=== PATIENT | female | born 1980 | race Caucasian/White ===

== ENCOUNTER 2016-06-18 09:11 | Day surgery (SDC) | payer BC ==
[2016-06-18] MEDS: Lactated Ringers 1,000 ML IV SCH ×2 (09:20→14:20)
[2016-06-18] MEDS ORDERED: Lidocaine 1%/Sod Bicarbonate in NS 8.4% 1 ML Syringe IV PRN (09:30)
[2016-06-18] MEDS ORDERED: Sodium Chloride 0.9% 10 ML Syringe FLUSH PRN (09:30)
--- NOTE | 2016-06-18 09:38 | PCM.PREANE ---
Preanesthetic Assessment - Physical Assessment NPO Status Date: 06/17/16 NPO Status Time: 21:30 O2 Sat by Pulse Oximetry: 100 Respiratory Rate: 16 Vital Signs: Last Vital Signs Temp 36.9 C 06/18/16 09:15 Pulse 82 06/18/16 09:15 Resp 16 06/18/16 09:15 BP 120/69 06/18/16 09:15 Pulse Ox 100 06/18/16 09:15 Height: 1.52 m Weight: 70.307 kg - Allergies Allergies/Adverse Reactions: Allergies Allergy/AdvReac Type Severity Reaction Status Date / Time hydrocodone Allergy Tachycardia Verified 06/18/16 09:31 latex Allergy Fever Verified 04/07/15 19:51 PreAnesthesia Questionnaire HEENT History: Reports: Impaired vision Cardiovascular History: Reports: Heart murmur Gastrointestinal History: Reports: GERD, Other (see below) Other Gastrointestinal History: Celiac Dz Genitourinary History: Reports: Other (see below) Other Genitourinary History: yeast infections, recurrent 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: Endometriosis, Endocrine/Metabolic History: Reports: Diabetes, type II - Past Surgical History HEENT Surgical History: Reports: Other (see below) Female Surgical History: Reports: D&C, Hysterectomy, Other (see below) - SUBSTANCE USE Smoking Status *Q: Never Smoker Second Hand Smoke Exposure: No Recreational Drug Use History: No - HOME MEDS Home Medications: Home Meds Fluconazole [Diflucan] 150 mg PO ACBRKBED #3 tablet 06/03/14 [Rx] Terconazole [Terazol 7] 1 applic VG DAILY #1 cream.appl 06/03/14 [Rx] Hydrochlorothiazide 12.5 mg PO DAILY 04/07/15 [History] Esomeprazole Magnesium [Nexium 24Hr] 20 mg PO DAILY #30 capsule. 04/08/15 [Rx] - CURRENT (IN HOUSE) MEDS Current Meds: Current Medications Lactated Ringer's (Ringers, Lactated) 1,000 mls @ 125 mls/hr IV ASDIRECTED LULA Lidocaine/Sodium Bicarbonate (Buffered Lidocaine 1% In Ns 8.4%) 0.25 ml IV ONETIME PRN PRN Reason: Prior to IV Start Scopolamine (Transderm-Scop) 1.5 mg TRDERM ONETIME ONE Stop: 06/18/16 09:31 Sodium Chloride (Saline Flush) 10 ml FLUSH ASDIRECTED PRN PRN Reason: Keep Vein Open Preanesthetic Assessment - ANESTHESIA/TRANSFUSION/FAMILY HX Anesthesia/Transfusion History: No Prior Transfusion(s), Prior Anesthesia Type of Anesthesia Reaction: Reports: Excessive Nausea/Vomiting Family History of Anesthesia Reaction: No Intubation History: Unknown - REVIEW OF SYSTEMS Constitutional: Reports: no symptoms QA INTERN: Reports: seizure (childhood seizures noted up until age 6, and patient states she out grew them.), weakness (noted currently due to pelvic pain.) Respiratory: Reports: no symptoms (History of asthma, with patient not currently needing to take albuterol inhaler.) Cardiovascular: Reports: no symptoms GI: Reports: no symptoms (GERD on occasion/with ingestion of spicey food.) Other: Reports: None (history of kidney stones.), Easy Bruising, Diabetes (pre- diabetic per patient.) - PHYSICAL ASSESSMENT HR: 82 O2 Sat by Pulse Oximetry: 100 RR: 16 BP: 120/69 Temp: 36.9 C Vital Signs: Last Vital Signs Temp 36.9 C 06/18/16 09:15 Pulse 82 06/18/16 09:15 Resp 16 06/18/16 09:15 BP 120/69 06/18/16 09:15 Pulse Ox 100 06/18/16 09:15 Height: 1.52 m Weight: 70.307 kg NPO Status Date: 06/17/16 NPO Status Time: 21:30 ASA Class: 2 Mental Status: Alert & Oriented x3 Airway Class: Mallampati = 2 Dentition: Reports: Normal Dentition, [place](s) (temporaty crown noted right upper/ and permanent lower retainer noted.), Caries Thyro-Mental Finger Breadths: 3 Mouth Opening Finger Breadths: 3 ROM/Head Extension: Full Respiratory Status: lungs clear to auscultation bilaterally Cardiovascular Status: regular rate & rhythm, normal S1, S2, no murmur, blood pressure WNL - LAB Values: Reviewed and noted. - ALLERGIES Allergies/Adverse Reactions: Allergies Allergy/AdvReac Type Severity Reaction Status Date / Time hydrocodone Allergy Tachycardia Verified 06/18/16 09:31 latex Allergy Fever Verified 04/07/15 19:51 - ANESTHESIA PLAN Preop Beta Amanda: No Anesthesia Type Planned: General Anesthesia - ACKNOWLEDGEMENTS Pt an Appropriate Candidate for the Planned Anesthesia: Yes Alternatives and Risks of Anesthesia Discussed w Pt/Guardian: Yes Pt/Guardian Understands and Agrees with Anesthesia Plan: Yes
[2016-06-18] MEDS ORDERED: Scopolamine 1.5 MG Transdermal Patch TRDERM ONE (09:45)
[2016-06-18] MEDS ORDERED: Bupivacaine 0.5% 30 ML SDV ONE (10:05)
[2016-06-18] MEDS ORDERED: Propofol 200 MG/20 ML SDV ONE ×3 (10:32→10:35)
[2016-06-18] MEDS ORDERED: Rocuronium 50 MG/5 ML Vial ONE (10:32)
[2016-06-18] MEDS ORDERED: Ondansetron 4 MG/2 ML SDV ONE (10:32)
[2016-06-18] MEDS ORDERED: Midazolam 1 MG/ML 2 ML SDV ONE (10:32)
[2016-06-18] MEDS ORDERED: fentaNYL 250 MCG/5 ML SDV ONE (10:33)
[2016-06-18] MEDS ORDERED: Dexamethasone 4 MG/ML 5 ML MDV ONE (10:34)
[2016-06-18] MEDS ORDERED: ceFAZolin 1 GM Vial ONE (11:36)
[2016-06-18] MEDS ORDERED: Phenylephrine/Normal Saline 100 MCG/ML 10 ML Syringe ONE (11:38)
[2016-06-18] MEDS ORDERED: HYDROmorphone 1 MG/ML Syringe ONE (11:43)
[2016-06-18] MEDS ORDERED: Lactated Ringers 1,000 ML ONE (11:53)
[2016-06-18] MEDS ORDERED: Albuterol 6.7 GM Inhaler INH PRN (11:56)
[2016-06-18] MEDS ORDERED: Neostigmine Methylsulfate 1 MG/ML 5 ML Syringe ONE (11:56)
--- NOTE | 2016-06-18 12:04 | PCM.OPNOTE ---
- General Post-Op/Procedure Note Date of Surgery/Procedure: 06/18/16 Operative Procedure(s): Laparoscopy, right salpingo-oophorectomy, lysis of pelvic adhesions Findings: The dense pelvic adhesions involving omentum and epiploica to the vaginal cuff. The bowel to the right ovary. Right ovary looked mildly enlarged with small cysts present. Left ovary looked normal. Left distal fallopian tube normal. Liver edge, gallbladder normal. Uterus and cervix surgically absent. Pre Op Diagnosis: 1. Pelvic pain. 2. Endometriosis Post-Op Diagnosis: Same with pelvic adhesions Anesthesia Technique: General ET tube Other Anesthesia Type: Marcaine 0.5% locally at the incision sites. Primary Surgeon: Bernard Camacho Secondary Surgeon: Sherita Lyman Anesthesia Provider: Ramez Mcmullen Pathology: Right tube and ovary Fluid Replacement, Intraop: 1,000 (Crystalloid) Output, Urine Amount: 50 EBL in mLs: 5 Drain/Tube Comments:: Bladder catheter during surgery only. Complications: None Condition: Good Free Text/Narrative:: Surgeon duration: 38 minutes Complications: None Specimens: Right tube and ovary. Procedure: The patient is taken to the operating room and placed in supine position on the operating table. She received 2 g of Ancef preoperatively for infection prophylaxis. She had sequential compression stockings in place for DVT prophylaxis. After adequate anesthesia patient was prepped and draped in the usual fashion. Sponge stick was placed in the vagina for manipulation and an indwelling bladder catheter was placed. The patient is placed in a near spine position with legs in the modified Ordoñez stirrups. Infraumbilical port site and suprapubic port site were then established with pneumoperitoneum placed with the Verres needle. The third port site right lateral abdomen was placed under direct visualization after infiltration with Marcaine 0.5% each site was infiltrated end total amount of Marcaine was approximately 7-10 cc. The findings were as described above. At this is made to take the right ovary and distal fallopian tube and lyse adhesions. The adhesions around the ovary was then lysed with the Ethicon Endoseal device. The infundibulopelvic ligament was then transected using the same device. The uterus and distal fallopian tube were placed in an Endo Catch bag and removed through the right lateral port site. Adhesions were lysed in the pelvis. This again using the Endo seal device. Hemostasis was confirmed at this time. A small peritoneal cyst was removed. The right lateral port site was then closed using a José Samano closure device and 2-0 PDS suture. The suprapubic port was removed and the pneumoperitoneum was then reversed. The intraumbilical port sleeve was also removed. All incisions were closed with interrupted subcuticular sutures of 3-0 Monocryl. Further approximated with Dermabond skin glue. The indwelling bladder catheter and sponge stick were removed at the end of the procedure. The patient was awakened from general endotracheal anesthesia. Sponge, instrument and needle counts are correct at the end of procedure. She tolerated the procedure well left the operating room in good condition.
[2016-06-18] MEDS ORDERED: traMADol 50 MG Tab PO PRN (12:05)
[2016-06-18] MEDS ORDERED: Ondansetron 4 MG/2 ML SDV IVPUSH PRN (12:10)
[2016-06-18] MEDS ORDERED: diphenhydrAMINE 50 MG/ML SDV IVPUSH PRN (12:10)
[2016-06-18] MEDS ORDERED: Meperidine PF 50 MG/ML Syringe IVPUSH PRN (12:10)
[2016-06-18] MEDS: fentaNYL 100 MCG/2 ML SDV IVPUSH PRN ×3 (12:12→12:35)
[2016-06-18] MEDS ORDERED: Ketorolac 30 MG/ML SDV ONE (12:17)
--- NOTE | 2016-06-18 12:18 | PCM.POSTAN ---
POST ANESTHESIA ASSESSMENT - MENTAL STATUS Mental Status: alert, oriented - VITAL SIGNS Pulse Rate: 88 SaO2: 96 Resp Rate: 14 Blood Pressure: 111/75 Temperature: 36.9 C - RESPIRATORY Respiratory Status: respiratory rate WNL, airway patent, O2 saturation stable, supplemental oxygen - CARDIOVASCULAR CV Status: pulse rate WNL, blood pressure stable - GASTROINTESTINAL GI Status: no symptoms - PAIN Pain Score: 7 (opioids given) - POST OP HYDRATION Hydration Status: adequate & stable
[2016-06-18] MEDS: HYDROmorphone 0.5 MG/0.5 ML Syringe IVPUSH PRN ×2 (12:22→12:46)
[2016-06-18] MEDS ORDERED: traMADol 50 MG Tab PO ONE (14:35)
[2016-06-18 15:37] VITALS: BP 109/64
== END 2016-06-18 15:50 | disposition home or self-care (01) ==
LOC: JD.SDS 09:11
PROVIDERS: ATTEND Obstetrics & Gynecology
PROC: 0UT04ZZ Resection of Right Ovary, Percutaneous Endoscopic Approach (ICD-10-PCS; principal; 2016-06-18)
PROC: 0UT54ZZ Resection of Right Fallopian Tube, Percutaneous Endoscopic Approach (ICD-10-PCS; 2016-06-18)
DX: N80.9 Endometriosis, unspecified (principal); N83.01 Follicular cyst of right ovary; N83.8 Other noninflammatory disorders of ovary, fallopian tube and broad ligament; N73.6 Female pelvic peritoneal adhesions (postinfective); Z88.6 Allergy status to analgesic agent; Z91.040 Latex allergy status; Z87.891 Personal history of nicotine dependence
CPT/HCPCS: 58661; 88305; A9270; J0690; J1100; J1170; J1885; J2250; J2405; J2710; J3010; J7120; 00840; J2704

== ENCOUNTER 2019-04-09 17:46 | Emergency (ER) | payer BC ==
[2019-04-09 18:30] VITALS: BP 111/79; PULSE 113
[2019-04-09] MEDS ORDERED: Sodium Chloride 0.9% 10 ML Syringe FLUSH PRN ×2 (18:40→18:50)
[2019-04-09] MEDS ORDERED: HYDROmorphone 0.5 MG/0.5 ML Syringe IVPUSH ONE ×2 (18:47→22:16)
[2019-04-09] MEDS ORDERED: Dexamethasone 10 MG/ML SDV IM ONE (18:47)
[2019-04-09] MEDS ORDERED: Iopamidol 612 MG/ML 100 ML Bottle IVPUSH ONE (18:50)
--- NOTE | 2019-04-09 19:07 | EDM.PDOC ---
ED HPI GENERAL MEDICAL PROBLEM - General Chief Complaint: ENT Problem Stated Complaint: STREP F NOT GETTING BETTER Time Seen by Provider: 04/09/19 18:37 Source of Information: Reports: Patient, RN Notes Reviewed History Limitations: Reports: No Limitations - History of Present Illness INITIAL COMMENTS - FREE TEXT/NARRATIVE: Patient is a 38-year-old female who presents to the ED for the evaluation of strep throat. Patient states that she was evaluated in the clinic about a week ago, for sore throat, she had a strep swab done, this was originally negative but the culture grew out Streptococcus f. The patient states she initially got a 1 g injection of Rocephin in the clinic however she states that she has not had much symptom improvement. She states that this has been worsening over the last few days. She is noting fevers of up to 102 F at home. She is having difficulty swallowing due to the throat pain, body aches, chills and nausea. Patient states she is not able to eat or drink much at all due to the pain. She does note that the pain was much worse this morning, this caused her to seek care for reevaluation. Patient states there is no chance of as she has had a hysterectomy. Generalized Pain Score (Numeric/FACES): 6 - Related Data Allergies Allergy/AdvReac Type Severity Reaction Status Date / Time hydrocodone AdvReac Tachycardia Verified 04/09/19 18:29 latex AdvReac Fever Verified 04/09/19 18:29 Home Meds: Home Meds Ondansetron [Zofran ODT] 4 mg PO Q8H PRN #12 tab.dis 04/09/19 [Rx] Penicillin V Potassium 500 mg PO BID #20 tab 04/09/19 [Rx] oxyCODONE HCl/Acetaminophen [Oxycodone-Acetaminophen 5-325] 1 each PO Q6H PRN # 12 tablet 04/09/19 [Rx] Past Medical History HEENT History: Reports: Impaired Vision Cardiovascular History: Reports: Heart Murmur Gastrointestinal History: Reports: GERD, Other (See Below) Other Gastrointestinal History: Celiac Dz Genitourinary History: Reports: Other (See Below) Other Genitourinary History: yeast infections, recurrent 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, Endocrine/Metabolic History: Reports: Diabetes, Type II - Past Surgical History Female Surgical History: Reports: D&C, Hysterectomy Social & Family History - Family History GI: Reports: Cholelithiasis Oncologic: Reports: Ovarian - Tobacco Use Smoking Status *Q: Never Smoker Second Hand Smoke Exposure: No - Caffeine Use Caffeine Use: Reports: None - Recreational Drug Use Recreational Drug Use: No - Living Situation & Occupation Living situation: Reports: , with Family ED ROS ENT - Review of Systems Review Of Systems: See Below Constitutional: Reports: Fever, Chills, Decreased Appetite (d/t throat pain). Denies: Weight Loss HEENT: Reports: Throat Pain, Throat Swelling (L sided) Respiratory: Denies: Shortness of Breath Cardiovascular: Denies: Chest Pain GI/Abdominal: Reports: Nausea. Denies: Abdominal Pain, Constipation, Diarrhea, Vomiting : Denies: Dysuria, Frequency, Urgency Neurological: Denies: Headache ED EXAM, ENT - Physical Exam Exam: See Below Exam Limited By: No Limitations General Appearance: Alert, WD/WN, No Apparent Distress Eye Exam: Bilateral Eye: EOMI, Normal Inspection, PERRL Ears: Normal External Exam, Normal Canal, Hearing Grossly Normal, Normal TMs Nose: Normal Inspection Mouth/Throat: Normal Inspection, Normal Gums, Normal Lips, Normal Teeth, Pharyngeal Erythema. No: Drooling, Trismus, Uvular Deviation, Uvular Edema Head: Atraumatic, Normocephalic Neck: Normal Inspection, Supple, Tender Lateral (L submandibular). No: Lymphadenopathy (L), Lymphadenopathy (R) Respiratory/Chest: No Respiratory Distress, Lungs Clear, Normal Breath Sounds, No Accessory Muscle Use, Chest Non-Tender Cardiovascular: Normal Peripheral Pulses, Regular Rate, Rhythm, No Murmur GI/Abdominal: Normal Bowel Sounds, Soft, Non-Tender, No Distention, No Mass Extremities: Normal Inspection, Normal Capillary Refill Neurological: Alert, Oriented, Normal Cognition, No Motor/Sensory Deficits Psychiatric: Normal Affect, Normal Mood Skin: Warm, Dry, Intact, Normal Color, No Rash Course - Vital Signs Last Recorded V/S: Last Vital Signs Temp 100.1 F 04/09/19 18:27 Pulse 113 H 04/09/19 18:27 Resp 16 04/09/19 18:27 BP 111/79 04/09/19 18:27 Pulse Ox 97 04/09/19 18:27 - Orders/Labs/Meds Orders: Active Orders 24 hr Category Date Time Status Peripheral IV Care [RC] . DIRECTED Care 04/09/19 18:41 Active Lactated Ringers [Ringers, Lactated] 1,000 ml Med 04/09/19 19:30 Active IV ASDIRECTED Sodium Chloride 0.9% [Saline Flush] Med 04/09/19 18:40 Active 10 ml FLUSH ASDIRECTED PRN Sodium Chloride 0.9% [Saline Flush] Med 04/09/19 18:50 Active 10 ml FLUSH ASDIRECTED PRN Peripheral IV Insertion Adult [OM.PC] Stat Oth 04/09/19 18:40 Ordered Medication Orders Lactated Ringer's (Ringers, Lactated) 1,000 mls @ 999 mls/hr IV ASDIRECTED LULA Last Admin: 04/09/19 19:37 Dose: 999 mls/hr Sodium Chloride (Saline Flush) 10 ml FLUSH ASDIRECTED PRN PRN Reason: Keep Vein Open Last Admin: 04/09/19 19:26 Dose: 10 ml Sodium Chloride (Saline Flush) 10 ml FLUSH ASDIRECTED PRN PRN Reason: Keep Vein Open Last Admin: 04/09/19 19:25 Dose: 10 ml Labs: Laboratory Tests 04/09/19 04/09/19 04/09/19 Range/Units 07:05 07:05 19:58 WBC 14.87 H (3.98-10.04) K/mm3 RBC 4.58 (3.98-5.22) M/mm3 Hgb 12.6 (11.2-15.7) gm/dl Hct 38.9 (34.1-44.9) % MCV 84.9 (79.4-94.8) fl MCH 27.5 (25.6-32.2) pg MCHC 32.4 (32.2-35.5) g/dl RDW Std Deviation 42.2 (36.4-46.3) fL Plt Count 190 (182-369) K/mm3 MPV 10.7 (9.4-12.3) fl Neutrophils % (Manual) 89 H (40-60) % Band Neutrophils % 2 (0-10) % Lymphocytes % (Manual) 4 L (20-40) % Atypical Lymphs % 0 % Monocytes % (Manual) 5 (2-10) % Eosinophils % (Manual) 0 L (0.7-5.8) % Basophils % (Manual) 0 L (0.1-1.2) Platelet Estimate Adequate RBC Morph Comment Normal Sodium 135 L (136-145) mEq/L Potassium 3.3 L (3.5-5.1) mEq/L Chloride 99 (98-107) mEq/L Carbon Dioxide 23 (21-32) mEq/L Anion Gap 16.3 H (5-15) BUN 8 (7-18) mg/dL Creatinine 0.9 (0.55-1.02) mg/dL Est Cr Clr Drug Dosing 62.07 mL/min Estimated GFR (MDRD) > 60 (>60) mL/min BUN/Creatinine Ratio 8.9 L (14-18) Glucose 113 H (74-106) mg/dL Lactic Acid 1.3 (0.4-2.0) mmol/L Calcium 9.4 (8.5-10.1) mg/dL Total Bilirubin 0.5 (0.2-1.0) mg/dL AST 16 (15-37) U/L ALT 46 (14-59) U/L Alkaline Phosphatase 70 (46-116) U/L Total Protein 8.8 H (6.4-8.2) g/dl Albumin 4.2 (3.4-5.0) g/dl Globulin 4.6 gm/dL Albumin/Globulin Ratio 0.9 L (1-2) Meds: Medications Generic Name Dose Route Start Last Admin Trade Name Freq PRN Reason Stop Dose Admin Lactated Ringer's 1,000 mls @ 999 mls/hr 04/09/19 19:30 04/09/19 19:37 Ringers, Lactated IV 999 mls/hr ASDIRECTED LULA Administration Sodium Chloride 10 ml 04/09/19 18:40 04/09/19 19:26 Saline Flush FLUSH 10 ml ASDIRECTED PRN Administration Keep Vein Open Sodium Chloride 10 ml 04/09/19 18:50 04/09/19 19:25 Saline Flush FLUSH 10 ml ASDIRECTED PRN Administration Keep Vein Open Discontinued Medications Generic Name Dose Route Start Last Admin Trade Name Freq PRN Reason Stop Dose Admin Dexamethasone 10 mg 04/09/19 18:47 04/09/19 19:26 Dexamethasone IM 04/09/19 18:48 10 mg ONETIME ONE Administration Hydromorphone HCl 0.5 mg 04/09/19 18:47 04/09/19 19:26 Dilaudid IVPUSH 04/09/19 18:48 0.5 mg ONETIME ONE Administration Hydromorphone HCl 0.5 mg 04/09/19 22:16 04/09/19 22:21 Dilaudid IVPUSH 04/09/19 22:17 0.5 mg ONETIME ONE Administration Ceftriaxone Sodium 2 gm/ 100 mls @ 200 mls/hr 04/09/19 20:55 04/09/19 21:27 Sodium Chloride IV 04/09/19 21:24 200 mls/hr ONETIME ONE Administration Iopamidol 100 ml 04/09/19 18:50 04/09/19 19:25 Isovue-300 (61%) IVPUSH 04/09/19 18:51 80 ml ONETIME ONE Administration - Re-Assessments/Exams Free Text/Narrative Re-Assessment/Exam: 04/09/19 19:27 Presents to the ED for the evaluation of ongoing left-sided throat pain. Due to the patient's ongoing swallowing difficulty, I have ordered a soft tissue CT of her neck to rule out any sort of abscess that she may have, I have ordered also an influenza screen, CBC, CMP, and a lactic acid for further evaluation. I did order 0.5 mg Dilaudid, 10 mg dexamethasone for further management of the patient's symptoms as well. 04/09/19 21:53 Labs did return, the patient's white blood cell count is elevated at 14,000, 89 % neutrophils and 2% bands, patient's CT did come back as well it demonstrates no evidence of a peritonsillar or retropharyngeal abscess. There was an 8 mm nodule within the right lobe of the thyroid gland, radiologist recommends an outpatient ultrasound for evaluation of this. There were no other acute processes noted on this CT exam. Due to the patient still being symptomatic, patient will be given 2 g of Rocephin in this ER visit, and a prescription for continuing penicillin on outpatient basis, twice daily 500 mg x 10 days. I will have her follow-up with her regular provider for the thyroid ultrasound. Departure - Departure Time of Disposition: 21:57 Disposition: Home, Self-Care 01 Condition: Fair Clinical Impression: Strep throat - Discharge Information *PRESCRIPTION DRUG MONITORING PROGRAM REVIEWED*: No *COPY OF PRESCRIPTION DRUG MONITORING REPORT IN PATIENT SUHAIL: No Prescriptions: Ondansetron [Zofran ODT] 4 mg PO Q8H PRN #12 tab.dis PRN Reason: Nausea oxyCODONE HCl/Acetaminophen [Oxycodone-Acetaminophen 5-325] 1 each PO Q6H PRN # 12 tablet PRN Reason: Pain Penicillin V Potassium 500 mg PO BID #20 tab Instructions: Strep Throat, [id number] Referrals: Cori Santillan PA-C [Primary Care Provider] - Forms: ED Department Discharge Additional Instructions: You were evaluated at this ED regarding your sore throat. An IV was started, some labs were drawn. Your influenza screen was negative, your white blood cell count is mildly elevated, suggesting bacterial infection which we already know you have strep throat. You were given a dose of Rocephin for antibiotics at this ED visit along with some IV fluids and 10 mg of dexamethasone for throat pain. You did also have an ultrasound done, this demonstrated no sign of an abscess in your throat, or any other swelling that would be harmful to your respiratory status. There was however an 8 mm nodule within the right lobe of the thyroid gland identified by CT, our radiologist recommends that you have an outpatient ultrasound done to further evaluate this nodule. You may coordinate this with your primary care provider. You were given a prescription for penicillin to be used on outpatient basis, please take 1 tab 2 times daily for 10 days. Please try to take 600 mg ibuprofen every 6 hours as needed for further pain relief. Do not exceed 3200 mg of ibuprofen today 24-hour time span. You may want to try to limit your diet to clear liquids or soft diet, items such as Gatorade, Powerade, chicken broth or beef broths for the next day or 2 and advance to bland diet as tolerated while your throat is still painful or sore. Please return to the ER at any time if your symptoms change or worsen. Sepsis Event Note - Evaluation Sepsis Screening Result: No Definite Risk - Focused Exam Vital Signs: Vital Signs Temp Pulse Resp BP Pulse Ox 04/09/19 18:27 100.1 F 113 H 16 111/79 97 Date Exam was Performed: 04/09/19 Time Exam was Performed: 22:23 - My Orders Last 24 Hours: My Active Orders 04/09/19 18:40 Sodium Chloride 0.9% [Saline Flush] 10 ml FLUSH ASDIRECTED PRN Peripheral IV Insertion Adult [OM.PC] Stat 04/09/19 18:41 Peripheral IV Care [RC] . DIRECTED 04/09/19 18:50 Sodium Chloride 0.9% [Saline Flush] 10 ml FLUSH ASDIRECTED PRN 04/09/19 19:30 Lactated Ringers [Ringers, Lactated] 1,000 ml IV ASDIRECTED - Assessment/Plan Last 24 Hours: My Active Orders 04/09/19 18:40 Sodium Chloride 0.9% [Saline Flush] 10 ml FLUSH ASDIRECTED PRN Peripheral IV Insertion Adult [OM.PC] Stat 04/09/19 18:41 Peripheral IV Care [RC] . DIRECTED 04/09/19 18:50 Sodium Chloride 0.9% [Saline Flush] 10 ml FLUSH ASDIRECTED PRN 04/09/19 19:30 Lactated Ringers [Ringers, Lactated] 1,000 ml IV ASDIRECTED
[2019-04-09] MEDS ORDERED: Lactated Ringers 1,000 ML IV SCH (19:30)
--- NOTE | 2019-04-09 19:45 | CT ---
CT neck Technique: Multiple axial sections were obtained from above the external auditory canals inferiorly through the lung apices. Intravenous contrast was utilized. Comparison: No prior CT neck exam. Findings: Visualized paranasal sinuses show nothing acute. Mastoid sinuses show nothing acute. Parotid salivary glands appear unremarkable. Submandibular salivary glands appear unremarkable. Low-density nodule is noted within the right lobe of the thyroid gland measuring 8 mm. Visualized lung apices are clear. No peritonsillar abscess is seen. Peritonsillar soft tissues are symmetric in appearance between the right and left sides. Prevertebral soft tissues are normal. Epiglottis appears normal. Small normal-appearing lymph nodes are scattered within the neck. Bone window settings were reviewed which shows mild scattered degenerative change within the cervical spine. No acute osseous finding is seen. Impression: 1. No evidence of peritonsillar abscess. 2. 8 mm nodule within the right lobe of the thyroid gland. Ultrasound could be performed to further evaluate (this can be performed non-emergently). 3. Other findings believed to be incidental and not acute as noted above. Diagnostic code #2 Study was dictated in [place] Standard Time
[2019-04-09] MEDS ORDERED: cefTRIAXone 2 GM in Sodium Chloride 0.9% 100 ML IV ONE (20:55)
== END 2019-04-09 22:30 | disposition home or self-care (01) ==
LOC: JD.ED 17:46
DX: J02.0 Streptococcal pharyngitis (principal); E04.1 Nontoxic single thyroid nodule; E11.9 Type 2 diabetes mellitus without complications; Z90.710 Acquired absence of both cervix and uterus; Z88.8 Allergy status to other drugs, medicaments and biological substances; Z91.040 Latex allergy status
CPT/HCPCS: 36415; 70491; 80053; 83605; 85007; 85027; 87804; 96361; 96365; 96372; 96375; 96376; 99284; J0696; J1100; J1170; J7050; J7120; Q9967; 99283

== ENCOUNTER → 2022-01-26 | Day surgery (SDC) | payer BC ==
[~2022-01-26] MED LIST: Acetaminophen/oxyCODONE 325-5 MG Tab PO PRN; Albuterol 0.083% 2.5 MG/3 ML Neb Soln NEB PRN; Bupivacaine 0.5% 30 ML SDV ONE; HYDROmorphone 0.5 MG/0.5 ML Syringe IVPUSH PRN; Ketorolac 30 MG/ML SDV ONE; Lactated Ringers 1,000 ML IV SCH; Lactated Ringers 1,000 ML ONE; Lidocaine 1% PF 2 ML SDV ONE; Lidocaine 1%/Sod Bicarbonate in NS 8.4% 1 ML Syringe IDERM PRN; Metoclopramide 10 MG/2 ML SDV ONE; Midazolam 1 MG/ML 2 ML SDV ONE; Ondansetron 4 MG/2 ML SDV IVPUSH PRN; Ondansetron 4 MG/2 ML SDV ONE; Propofol 200 MG/20 ML SDV ONE; Rocuronium 50 MG/5 ML Vial ONE; Scopolamine 1.5 MG Transdermal Patch TOP SCH; Sodium Chloride 0.9% 10 ML Syringe FLUSH PRN; Sodium Chloride 0.9% 10 ML Syringe FLUSH SCH; Succinylcholine 200 MG/10 ML MDV ONE; Sugammadex Sodium 200 MG/2 ML VIAL ONE; ceFAZolin 2 GM Vial ONE; fentaNYL 100 MCG/2 ML SDV IVPUSH PRN; fentaNYL 250 MCG/5 ML SDV ONE
[2022-01-26 15:01] VITALS: BP 111/67; PULSE 87
== END | disposition home or self-care (01) ==
LOC: JD.SDS 06:57
PROVIDERS: ATTEND Obstetrics & Gynecology
DX: N83.12 Corpus luteum cyst of left ovary (principal); N83.8 Other noninflammatory disorders of ovary, fallopian tube and broad ligament; N73.6 Female pelvic peritoneal adhesions (postinfective); E04.2 Nontoxic multinodular goiter; F41.9 Anxiety disorder, unspecified; G43.909 Migraine, unspecified, not intractable, without status migrainosus; J45.909 Unspecified asthma, uncomplicated; K21.9 Gastro-esophageal reflux disease without esophagitis; Z91.040 Latex allergy status; Z88.5 Allergy status to narcotic agent; Z79.899 Other long term (current) drug therapy; Z87.891 Personal history of nicotine dependence
CPT/HCPCS: 36415; 58661; 85025; A9270; J0330; J0690; J1885; J2250; J2405; J2704; J2765; J3010; J3490; J7120; 00840

== ENCOUNTER 2022-10-24 12:25 | Emergency (ER) | payer BC ==
[2022-10-24] MEDS ORDERED: HYDROmorphone 1 MG/ML Syringe IM ONE (12:44)
[2022-10-24 19:51] VITALS: BP 130/85; PULSE 72
== END 2022-10-24 14:14 | disposition home or self-care (01) ==
LOC: JD.ED 12:25
DX: J01.00 Acute maxillary sinusitis, unspecified (principal); K21.9 Gastro-esophageal reflux disease without esophagitis; Z88.5 Allergy status to narcotic agent; Z91.040 Latex allergy status; Z79.899 Other long term (current) drug therapy; Z90.710 Acquired absence of both cervix and uterus
CPT/HCPCS: 70486; 96372; 99283; J1170; 99282

== ENCOUNTER 2023-01-29 06:36 | Emergency (ER) | payer BC ==
[2023-01-29] MEDS ORDERED: Sodium Chloride 0.9% 10 ML Syringe FLUSH PRN (06:55)
[2023-01-29] MEDS ORDERED: Ondansetron 4 MG/2 ML SDV IVPUSH ONE (06:55)
[2023-01-29] MEDS ORDERED: HYDROmorphone 0.5 MG/0.5 ML Syringe IVPUSH ONE (06:56)
[2023-01-29] MEDS ORDERED: Ketorolac 30 MG/ML SDV IVPUSH ONE (06:56)
[2023-01-29] MEDS ORDERED: Sodium Chloride 0.9% 1,000 ML IV SCH (07:00)
[2023-01-29 07:20] LABS: BASOPHILS ABSOLUTE AUTO 0.1 K/mm3 (0.0-0.2); BASOPHILS PERCENT AUTO 0.7 % (0.0-1.0); EOSINOPHILS ABSOLUTE AUTO 0.1 K/mm3 (0.0-0.4); EOSINOPHILS PERCENT AUTO 2.1 % (0.0-6.0); HEMATOCRIT 41.2 % (37.0-47.0); HEMOGLOBIN 13.2 gm/dl (12.0-16.0); IMMATURE GRAN ABSOLUTE AUTO 0.01 K/mm3 (0.00-0.05); IMMATURE GRAN PERCENT AUTO 0.1 % (0.0-0.4); LYMPHOCYTES ABSOLUTE AUTO 3.1 K/mm3 (1.0-4.8); LYMPHOCYTES PERCENT AUTO 46.1 % (24.0-44.0); MEAN CORPUSCULAR HEMOGLOBIN 26.6 pg (28.0-32.0); MEAN CORPUSCULAR VOLUME 83.1 fl (83.0-99.0); MEAN PLATELET VOLUME 10.6 fl (9.4-12.3); MONOCYTES ABSOLUTE AUTO 0.5 K/mm3 (0.0-0.8); MONOCYTES PERCENT AUTO 6.9 % (0.0-8.0); NEUTROPHILS PERCENT AUTO 44.1 % (41.0-71.0); PLATELET COUNT,PLT 246 K/mm3 (150-400); RED BLOOD CELL COUNT 4.96 M/mm3 (4.10-5.30); WHITE BLOOD CELL COUNT,WBC 6.79 K/mm3 (3.9-11.3)
[2023-01-29 07:28] LABS: ALBUMIN 4.3 g/dl (3.4-5.0); CALCIUM 9.7 mg/dL (8.5-10.1); POTASSIUM,K 3.4 mEq/L (3.5-5.1)
[2023-01-29 07:39] LABS: ANION GAP 17.4 (5-15); BILIRUBIN TOTAL 0.4 mg/dL (0.2-1.0); CREATININE 0.8 mg/dL (0.55-1.02); EST CRCL DRUG DOSING (CG) 67.14 mL/min; PROTEIN TOTAL,TP 8.5 g/dl (6.4-8.2)
[2023-01-29] MEDS ORDERED: Morphine 4 MG/ML Syringe IVPUSH ONE ×2 (08:01→10:20)
[2023-01-29] MEDS ORDERED: Ketorolac 15 MG/ML SDV IVPUSH ONE (09:30)
[2023-01-29] MEDS ORDERED: Tamsulosin 0.4 MG Cap.ER PO ONE (10:20)
[2023-01-29 11:34] LABS: APPEARANCE,URINE CLEAR (Clear); BILIRUBIN,URINE NEGATIVE (Negative); COLOR,URINE YELLOW (Yellow); GLUCOSE,URINE NEGATIVE (Negative); KETONES,URINE 1+ (Negative); LEUKOCYTE ESTERASE,URINE NEGATIVE (Negative); NITRITE,URINE NEGATIVE (Negative); OCCULT BLOOD,URINE 2+ (Negative); PH,URINE 5.5 (5.0-8.0); PROTEIN,URINE 1+ (Negative); UROBILINOGEN,URINE 0.2 (0.2-1.0)
[2023-01-29 11:52] LABS: BACTERIA,URINE MODERATE /hpf (FEW); BARBITURATE SCREEN,URINE NEGATIVE (CUTOFF=200); BENZODIAZEPINES SCREEN,URINE NEGATIVE (CUTOFF=150); BUPRENORPHINE SCREEN,URINE NEGATIVE (CUTOFF=10); EPITHELIAL CELLS,URINE 0-5 /hpf (0-5); HYALINE CASTS,URINE 0-5 /lpf (0-5); METHADONE SCREEN, URINE NEGATIVE (CUTOFF=200); METHAMPHETAMINES SCREEN, URINE NEGATIVE (CUTOFF=500); MUCUS,URINE MANY /hpf (FEW); OXYCODONE SCREEN,URINE NEGATIVE (CUT0FF=100); THC SCREEN,URINE 20 NG/ML NEGATIVE (CUTOFF=50); WBC,URINE 0-5 /hpf (0-5)
[2023-01-29 11:53] LABS: AMORPHOUS SEDIMENT,URINE FEW /hpf (NOT SEEN)
[2023-01-29 11:56] LABS: AMPHETAMINES SCREEN, URINE NEGATIVE (CUTOFF=500)
[2023-01-29 15:22] VITALS: BP 113/83; PULSE 96
== END 2023-01-29 15:13 | disposition home or self-care (01) ==
LOC: JD.ED 06:36
DX: N13.2 Hydronephrosis with renal and ureteral calculous obstruction (principal); J45.909 Unspecified asthma, uncomplicated; Z88.5 Allergy status to narcotic agent; Z91.040 Latex allergy status; Z79.899 Other long term (current) drug therapy; Z90.710 Acquired absence of both cervix and uterus
CPT/HCPCS: 36415; 74176; 80053; 80306; 81001; 83690; 85025; 96361; 96374; 96375; 96376; 99284; A9270; J1170; J1885; J2270; J2405; J3490; J7030

== ENCOUNTER 2024-10-10 19:08 | Emergency (ER) | payer BC ==
[2024-10-10 21:15] VITALS: BP 131/84; PULSE 78
== END 2024-10-10 21:13 | disposition home or self-care (01) ==
LOC: JD.ED 19:08
DX: M79.662 Pain in left lower leg (principal); Z79.899 Other long term (current) drug therapy; Z91.040 Latex allergy status; Z90.710 Acquired absence of both cervix and uterus
CPT/HCPCS: 93971-26-LT; 93971-LT; 99282; 99283

== ENCOUNTER 2025-02-10 20:55 | Emergency (ER) | payer BC ==
[2025-02-10 21:52] LABS: BASOPHILS ABSOLUTE AUTO 0.1 K/mm3 (0.0-0.2); BASOPHILS PERCENT AUTO 0.4 % (0.0-1.0); EOSINOPHILS ABSOLUTE AUTO 1.6 K/mm3 (0.0-0.4); EOSINOPHILS PERCENT AUTO 12.8 % (0.0-6.0); IMMATURE GRAN ABSOLUTE AUTO 0.03 K/mm3 (0.00-0.05); IMMATURE GRAN PERCENT AUTO 0.2 % (0.0-0.4); LYMPHOCYTES ABSOLUTE AUTO 2.1 K/mm3 (1.0-4.8); LYMPHOCYTES PERCENT AUTO 17.0 % (24.0-44.0); MEAN PLATELET VOLUME 11.0 fl (9.4-12.3); MONOCYTES ABSOLUTE AUTO 0.7 K/mm3 (0.0-0.8); MONOCYTES PERCENT AUTO 5.4 % (0.0-8.0); NEUTROPHILS ABSOLUTE AUTO 8.0 K/mm3 (1.8-7.7); NEUTROPHILS PERCENT AUTO 64.2 % (41.0-71.0); NRBC ABSOLUTE 0.00 (0.00-0.02); NRBC PERCENT 0.0 % (0.0-0.2); PLATELET COUNT,PLT 234 K/mm3 (150-400); RED BLOOD CELL COUNT 5.44 M/mm3 (4.10-5.30); WHITE BLOOD CELL COUNT,WBC 12.44 K/mm3 (3.9-11.3)
[2025-02-10 22:00] LABS: A/G RATIO 1.0 (1-2); ALANINE AMINOTRANSFERASE,ALT 22.0 U/L (14-59); ASPARTATE AMNIOTRANSFERASE,AST 12.0 U/L (15-37); BILIRUBIN TOTAL 0.6 mg/dL (0.2-1.0); BLOOD UREA NITROGEN,BUN 12.0 mg/dL (7-18); CARBON DIOXIDE,CO2 26.0 mEq/L (21-32); CHLORIDE,CL 105.0 mEq/L (98-107); CREATININE 0.8 mg/dL (0.55-1.02); EST CRCL DRUG DOSING (CG) 79.11 mL/min; ESTIMATED GFR 94.0 mL/min (>60); GLUCOSE RANDOM 103.0 mg/dL (70-99); POTASSIUM,K 3.6 mEq/L (3.5-5.1); PROTEIN TOTAL,TP 7.5 g/dl (6.4-8.2); SODIUM,NA 141.0 mEq/L (136-145)
[2025-02-10] MEDS: Sodium Chloride 0.9% 10 ML Syringe FLUSH PRN ×2 (22:00→22:18)
[2025-02-10] MEDS: Ondansetron 4 MG/2 ML SDV IVPUSH ONE (22:00)
[2025-02-10] MEDS: Iopamidol 612 MG/ML 100 ML Bottle IVPUSH ONE (22:18)
[2025-02-11 00:44] LABS: APPEARANCE,URINE CLEAR (Clear); GLUCOSE,URINE NEGATIVE (Negative); OCCULT BLOOD,URINE NEGATIVE (Negative)
[2025-02-11 00:55] LABS: SQUAMOUS EPITHELIAL CELLS,UR 0-5 /hpf (0-5)
[2025-02-11 01:34] VITALS: BP 123/83; PULSE 85
== END 2025-02-11 01:30 | disposition home or self-care (01) ==
LOC: JD.ED 20:55
DX: K52.9 Noninfective gastroenteritis and colitis, unspecified (principal); J45.909 Unspecified asthma, uncomplicated; Z88.5 Allergy status to narcotic agent; Z91.040 Latex allergy status; Z79.51 Long term (current) use of inhaled steroids; Z86.16 Personal history of COVID-19; Z90.89 Acquired absence of other organs
CPT/HCPCS: 36415; 74177; 76705; 80053; 81001; 83690; 85025; 96361; 96374; 96375; 96376; 99284; A9270; J2405; J7030; Q9967; J1171